=== PATIENT | male | born 1985 | race Caucasian/White ===

== ENCOUNTER 2016-12-15 11:38 | Emergency (ER) | payer BC, OTHER ==
[~2016-12-15] VITALS: Ht 175.3 cm; Wt 94.7 kg
[2016-12-15 11:47] VITALS: TEMP 36.7; Ht 175.3 cm; Wt 94.7 kg
[2016-12-15] MEDS ORDERED: ONDANSETRON INJ 2 MG/ML 2 ML VIAL IV STA (11:56)
[2016-12-15] MEDS ORDERED: MoRPHine SULFATE 10 MG/ML CARP/VIAL IV STA (11:56)
[2016-12-15] MEDS ORDERED: SODIUM CHLORIDE 0.9% 1000ML 1,000 ML IV STA (11:56)
[2016-12-15] MEDS ORDERED: MoRPHine SULFATE 4 MG/ML 1 ML CARP\\VIAL ONE (12:01)
[2016-12-15] MEDS ORDERED: ONDANSETRON INJ 2 MG/ML 2 ML VIAL ONE (12:01)
[2016-12-15 12:25] LABS: BASO % 0.6 %; BASO ABS # 0.06 K/uL (0-0.2); COMPLETE YES; EOS % 3.2 %; HEMATOCRIT 48.8 % (42-52); IG% 0.7 %; LYMPH % 31.3 %; LYMPH ABS # 3.15 K/uL (1.2-3.4); MEAN CELL VOLUME 86.7 fL (80-100); MEAN CORPUSCULAR HEMOGLOBIN 28.8 pg (25-34); MEAN CORPUSCULAR HGB CONC 33.2 g/dl (32-36); MEAN PLATELET VOLUME 9.9 fL (7.4-10.4); MONO % 5.3 %; NEUT % 58.9 %; PLATELET COUNT 287 K/uL (130-400); RED BLOOD COUNT 5.63 M/uL (4.7-6.1); WHITE BLOOD COUNT 10.08 K/uL (4.8-10.8)
[2016-12-15 12:36] LABS: CALCIUM 9.5 mg/dl (8.5-10.1)
[2016-12-15 12:37] LABS: BUN/CREATININE RATIO 19.1 (10-20); CREATININE 1.1 mg/dl (0.60-1.40); POTASSIUM 3.8 mmol/L (3.5-5.1)
[2016-12-15] MEDS ORDERED: HYDROmorphone INJ 0.5 MG/0.5 ML SYR IV STA ×2 (12:39→13:23)
[2016-12-15 12:40] LABS: ALB/GLOB RATIO 1.1 (0.9-2)
[2016-12-15 12:44] LABS: URINE APPEARANCE CLEAR (CLEAR); URINE BILIRUBIN NEG (NEG); URINE COLOR YELLOW; URINE NITRITE NEG (NEG); URINE SPECIFIC GRAVITY 1.031 (1.000-1.030); UROBILINOGEN NEG (NEG); ZZUR CULT IF INDIC CLEAN CATCH NO
--- NOTE | 2016-12-15 12:52 | DIAGNOSTIC IMAGING REPORT ---
ABDOMEN AND PELVIS CT WITHOUT CONTRAST CT DOSE: 451.32 mGy.cm HISTORY: Pain left flank pain TECHNIQUE: Multiaxial CT images of the abdomen and pelvis were performed without the use of intravenous and oral contrast according to the standard department stone protocol. COMPARISON STUDY: None. FINDINGS: Lung bases are clear. Liver spleen and pancreas are considered unremarkable. Gallbladder is negative for distention. There is a 1 mm nonobstructing lower pole right renal calcification. There is an additional mid pole 1 mm calcification. There is moderate fullness of left renal collecting system as well as left ureter. Distal left ureter is somewhat less distended. There is a 1.5 mm partially obstructing calculus left ureterovesical junction. Bladder is midline. Bowel pattern overall is nonobstructive. IMPRESSION: 1. 1.5 mm partially obstructing calculus left ureterovesical junction. 2. Mild left hydroureteronephrosis. 3. Several nonobstructing punctate right renal calcifications. Electronically signed by: Jose Beavers M.D. 12/15/2016 12:50 PM Dictated Date/Time: 12/15/2016 12:45 PM
[2016-12-15 12:59] LABS: MANUAL MICROSCOPIC REQUIRED? NO; REVIEW REQ? NO
[2016-12-15] MEDS ORDERED: KETOROLAC TROMETHAMINE 30 MG/ML VIAL IV STA (13:17)
[2016-12-15] MEDS ORDERED: TAMSULOSIN HCL 0.4 MG CAP PO ONE (13:30)
[2016-12-15] MEDS ORDERED: OXYC-57 PO (14:14)
[2016-12-15] MEDS ORDERED: ONDA4TAB10 SL (14:15)
[2016-12-15] MEDS ORDERED: TAMS0.4C38 PO (14:15)
--- NOTE | 2016-12-15 14:16 | EMERGENCY ROOM VISIT NOTE ---
History First contact with patient: 11:51 Chief Complaint: FLANK PAIN Stated Complaint: BACK PAIN-LEFT SIDE History of Present Illness The patient is a 31 year old male who presents to the Emergency Room with complaints of a sudden onset of left-sided flank pain. The patient states that he has had "an upset stomach" all day today. He reports that approximately 30 minutes prior to arrival, he had an acute onset of left flank pain. He reports that the pain radiates into the left side of his abdomen. He rates the discomfort a 10/10. He reports nausea but no vomiting. He denies any urinary symptoms. He denies any history of similar symptoms. He denies any history of kidney stones. Review of Systems A complete 10 point review of systems was reviewed with the patient with pertinent positives and negatives as per history of present illness. All else were negative. Social History Smoking Status: Never Smoker Current/Historical Medications Scheduled Ondasetron Odt (Zofran Odt), 4 MG SL Q6H Tamsulosin Hcl (Flomax), 0.4 MG PO DAILY Scheduled PRN Oxycodone/Acetaminophen 5MG/325MG (Percocet 5MG/325MG), 1-2 TABS PO Q6H PRN for Pain Allergies Coded Allergies: Bacitracin (Verified Allergy, Mild, rash, 12/15/16) Neomycin (Verified Allergy, Mild, rash, 12/15/16) Polymyxin B (Verified Allergy, Mild, rash, 12/15/16) Physical Exam Vital Signs Date Time Temp Pulse Resp B/P Pulse Ox O2 Delivery O2 Flow Rate FiO2 12/15/16 14:19 74 16 117/82 99 12/15/16 13:32 63 16 116/87 96 Room Air 12/15/16 12:00 106 30 132/102 12/15/16 11:47 36.7 86 18 85/62 97 Room Air Physical Exam VITALS: Vitals are noted on the nurse's note and reviewed by myself. Vital signs stable. GENERAL: This is a 31-year-old male, in no acute distress, nondiaphoretic, well- developed well-nourished. SKIN: Capillary reflex less than 2 seconds. HEART: Regular rate and rhythm without murmurs gallops or rubs. LUNGS: Clear to auscultation bilaterally without wheezes, rales or rhonchi. ABDOMEN: Positive bowel sounds x 4. Soft, nondistended, mild left lower quadrant tenderness. There is left CVA tenderness. NEURO: Patient was alert and oriented to person place and time. Medical Decision & Procedures Laboratory Results 12/15/16 12:00 Red Blood Count 5.63, Mean Corpuscular Volume 86.7, Mean Corpuscular Hemoglobin 28.8, Mean Corpuscular Hemoglobin Concent 33.2, Mean Platelet Volume 9.9, Neutrophils (%) (Auto) 58.9, Lymphocytes (%) (Auto) 31.3, Monocytes (%) (Auto) 5.3, Eosinophils (%) (Auto) 3.2, Basophils (%) (Auto) 0.6, Neutrophils # (Auto) 5.95, Lymphocytes # (Auto) 3.15, Monocytes # (Auto) 0.53, Eosinophils # (Auto) 0.32, Basophils # (Auto) 0.06 12/15/16 12:00 Test 12/15/16 12:00 White Blood Count 10.08 K/uL (4.8-10.8) Red Blood Count 5.63 M/uL (4.7-6.1) Hemoglobin 16.2 g/dL (14.0-18.0) Hematocrit 48.8 % (42-52) Mean Corpuscular Volume 86.7 fL (80-100) Mean Corpuscular Hemoglobin 28.8 pg (25-34) Mean Corpuscular Hemoglobin Concent 33.2 g/dl (32-36) Platelet Count 287 K/uL (130-400) Mean Platelet Volume 9.9 fL (7.4-10.4) Neutrophils (%) (Auto) 58.9 % Lymphocytes (%) (Auto) 31.3 % Monocytes (%) (Auto) 5.3 % Eosinophils (%) (Auto) 3.2 % Basophils (%) (Auto) 0.6 % Neutrophils # (Auto) 5.95 K/uL (1.4-6.5) Lymphocytes # (Auto) 3.15 K/uL (1.2-3.4) Monocytes # (Auto) 0.53 K/uL (0.11-0.59) Eosinophils # (Auto) 0.32 K/uL (0-0.5) Basophils # (Auto) 0.06 K/uL (0-0.2) RDW Standard Deviation 40.2 fL (36.4-46.3) RDW Coefficient of Variation 12.6 % (11.5-14.5) Immature Granulocyte % (Auto) 0.7 % Immature Granulocyte # (Auto) 0.07 K/uL (0.00-0.02) Urine Color YELLOW Urine Appearance CLEAR (CLEAR) Urine pH 5.0 (4.5-7.5) Urine Specific [place] 1.031 (1.000-1.030) Urine Protein NEG (NEG) Urine Glucose (UA) NEG (NEG) Urine Ketones NEG (NEG) Urine Occult Blood 2+ (NEG) Urine Nitrite NEG (NEG) Urine Bilirubin NEG (NEG) Urine Urobilinogen NEG (NEG) Urine Leukocyte Esterase NEG (NEG) Urine WBC (Auto) 1-5 /hpf (0-5) Urine RBC (Auto) >30 /hpf (0-4) Urine Hyaline Casts (Auto) 1-5 /lpf (0-5) Urine Epithelial Cells (Auto) 5-10 /lpf (0-5) Urine Bacteria (Auto) NEG (NEG) Anion Gap 10.0 mmol/L (3-11) Est Creatinine Clear Calc Drug Dose 109.5 ml/min Estimated GFR () 102.4 Estimated GFR (Non- 88.4 BUN/Creatinine Ratio 19.1 (10-20) Calcium Level 9.5 mg/dl (8.5-10.1) Total Bilirubin 0.4 mg/dl (0.2-1) Aspartate Amino Transf (AST/SGOT) 18 U/L (15-37) Alanine Aminotransferase (ALT/SGPT) 39 U/L (12-78) Alkaline Phosphatase 86 U/L (45-117) Total Protein 8.2 gm/dl (6.4-8.2) Albumin 4.3 gm/dl (3.4-5.0) Globulin 3.9 gm/dl (2.5-4.0) Albumin/Globulin Ratio 1.1 (0.9-2) Lipase 105 U/L (73-393) Medications Administered Medications (Trade) Dose Ordered Sig/Vinnie Route Start Time Stop Time Status Last Admin Dose Admin Sodium Chloride (Nss 1000ml) 1,000 ml @ 999 mls/hr Q1H1M STAT IV 12/15/16 11:56 12/15/16 12:56 DC 5/24/17 12:05 999 MLS/HR Ondansetron HCl (Zofran Inj) 4 mg STK-MED ONCE .ROUTE 12/15/16 12:01 12/15/16 12:02 DC 12/15/16 12:04 4 MG Morphine Sulfate (MoRPHine SULFATE INJ) 8 mg STK-MED ONCE .ROUTE 12/15/16 12:01 12/15/16 12:02 DC 12/15/16 12:05 8 MG Hydromorphone HCl (Dilaudid Inj) 0.5 mg NOW STAT IV 12/15/16 12:39 12/15/16 12:40 DC 12/15/16 12:49 0.5 MG Ketorolac Tromethamine (Toradol Inj) 30 mg NOW STAT IV 12/15/16 13:17 12/15/16 13:18 DC 12/15/16 13:32 30 MG Tamsulosin HCl (Flomax Cap) 0.4 mg NOW ONCE PO 12/15/16 13:30 12/15/16 13:31 DC 12/15/16 13:31 0.4 MG Hydromorphone HCl (Dilaudid Inj) 0.5 mg NOW STAT IV 12/15/16 13:23 12/15/16 13:25 DC 12/15/16 13:32 0.5 MG ED Course The patient was evaluated as above. Labs were drawn and IV access was obtained. Patient was medicated with 1 L normal saline solution, 8 mg morphine IV and 4 mg Zofran IV. Patient was reevaluated and had continued pain. He was given 0.[address] scan of the abdomen and pelvis was performed and read by radiology as above. Patient was reevaluated and had continued pain. He was given 30 mg Toradol IV, 0.5 mg Dilaudid IV and a dose of Flomax. Patient was reassessed and felt much better. Discharge instructions were reviewed with the patient. The patient verbalized understanding of my assessment and treatment plan and was discharged home in good condition. Medical Decision Differential diagnosis includes renal calculus, pyelonephritis, bowel obstruction, lumbar pain, among others. The patient is a 31-year-old male who presents today complaining of left flank pain. Labs revealed no leukocytosis or anemia. Urine shows the presence of blood. CT scan was obtained and did show a left ureteral stone. The patient was treated with multiple doses of pain medication and did feel much better. He was offered admission for pain control but preferred to be discharged home. He will be placed on Flomax and was given prescriptions for Percocet and Zofran. Based on the patient's presentation and work up, I feel the patient is stable for outpatient treatment. The patient was educated to return to the emergency department for any worsening of their current condition or new/concerning symptoms. He will follow up with his PCP. [place] [facility] Monitoring [facility] Search Results: patient reviewed within database, no issues identified Impression Primary Impression: Left ureteral calculus Departure Information Dispostion Home / Self-Care Condition GOOD Prescriptions Ondasetron Odt (ZOFRAN ODT) 4 Mg Tab 4 MG SL Q6H for Nausea, #15 TAB Prov: Vicky Sanches PA-C 12/15/16 Tamsulosin Hcl (FLOMAX) 0.4 Mg Cap 0.4 MG PO DAILY for 7 Days, #7 CAP Prov: Vicky Sanches PA-C 12/15/16 Oxycodone/Acetaminophen 5MG/325MG (PERCOCET 5MG/325MG) Tab 1-2 TABS PO Q6H Y for Pain, #20 TAB For Initial Treatment Prov: Vicky Sanches PA-C 12/15/16 Referrals No Doctor, Assigned (PCP) Bassam Chris MD Patient Instructions My [facility] Additional Instructions You have been treated in the Emergency Department today for a Kidney Stone ( Nephrolithiasis). You have received pain medicine in the emergency department which impairs your ability to operate a vehicle. It is illegal for you to drive after receiving these medicines. You have been prescribed Percocet to be used for pain control. This is a narcotic medication. You cannot drive or consume alcohol while on this medicine. This medicine should only be used for pain that cannot be controlled with [id number] pain medicines. You have been prescribed Zofran to be used for any nausea or vomiting. Take as prescribed. You have been prescribed Flomax 0.4 mg to be taken ONCE daily. This medicine has been prescribed as it can help relax the smooth muscles of the urinary tract increasing transit time of the kidney stone. For pain control, you can use the following [id number] medicines (if >12 yo): - Regular strength (325mg/tab) Tylenol (acetaminophen) 2 tabs every 4-6 hours as needed. Do not exceed 12 tablets in a 24 hour period. Avoid taking more than 4 grams (4000 mg) of Tylenol per day. This includes any other sources of acetaminophen you may take on a regular basis. - Regular strength (200 mg/tab) Advil (ibuprofen) 1-2 tabs every 4-6 hours as needed. Do not exceed a dose of 3200 mg per day. You have been provided a strainer and specimen collection cup. You should strain your urine to collect any passed stones. Your stones can be placed into the specimen cup and taken to your Urologist for further evaluation. You have been provided the contact information for the on-call Urologist. You should contact the Urologist's office tomorrow to establish a follow-up appointment from today's Emergency Department visit. Return to the Emergency Department if your symptoms persist despite the treatment plan outlined above or if you develop the following symptoms: intractable pain, fever, chills, or large amounts of blood in your urine.
[2016-12-15 14:19] VITALS: BP 117/82; PULSE 74; O2SAT 99
== END 2016-12-15 14:26 | disposition home or self-care (01) ==
LOC: C.EDB 11:42 → C.EDC 14:26
DX: N20.1 Calculus of ureter (principal)

== ENCOUNTER 2017-08-05 09:56 | Emergency (ER) | payer BC ==
[~2017-08-05] VITALS: Ht 177.8 cm; Wt 88.0 kg
[2017-08-05 10:07] VITALS: TEMP 36.8; Ht 177.8 cm; Wt 88.0 kg
[2017-08-05] MEDS ORDERED: ONDANSETRON INJ 2 MG/ML 2 ML VIAL IV STA (10:47)
[2017-08-05] MEDS ORDERED: KETOROLAC TROMETHAMINE 30 MG/ML VIAL IV STA (10:47)
[2017-08-05] MEDS ORDERED: HYDROmorphone INJ 1 MG/ML SYR IV STA ×3 (10:47→14:21)
--- NOTE | 2017-08-05 11:01 | EMERGENCY ROOM VISIT NOTE ---
History Report prepared by Dilip: Rl Stroud Under the Supervision of: Dr. Magnus Shah M.D. First contact with patient: 10:39 Chief Complaint: KIDNEY STONE Stated Complaint: KIDNEY STONE History of Present Illness The patient is a 32 year old male who presents to the Emergency Room with complaints of lower flank pain that he has been experiencing intermittently for the past couple of days. He notes that his pain worsened significantly today, as well as began to radiate into his groin. He has a history of kidney stones and notes that this feels exactly like the episodes he has had in the past. Source of History: patient Onset: Past couple of days Position: back (lower) Timing: worsening (two days) Note: Groin Pain Review of Systems See HPI for pertinent positives & negatives. A total of 10 systems reviewed and were otherwise negative. Past Medical & Surgical Medical Problems: (1) Hx of renal calculi Family History Cancer Hypertension Social History Smoking Status: Never Smoker Marital Status: Housing Status: lives with significant other Occupation Status: employed Current/Historical Medications Scheduled Amoxicillin (Amoxil), 500 MG PO TID Tamsulosin Hcl (Flomax), 0.4 MG PO DAILY Scheduled PRN Oxycodone/Acetaminophen 5MG/325MG (Percocet 5MG/325MG), 1-2 TAB PO Q4H PRN for Pain Allergies Coded Allergies: Bacitracin (Verified Allergy, Mild, rash, 08/05/17) Neomycin (Verified Allergy, Mild, rash, 08/05/17) Polymyxin B (Verified Allergy, Mild, rash, 08/05/17) Physical Exam Vital Signs Date Time Temp Pulse Resp B/P (MAP) Pulse Ox O2 Delivery O2 Flow Rate FiO2 08/05/17 14:34 95 127/76 97 08/05/17 14:04 95 127/76 97 Room Air 08/05/17 12:02 66 08/05/17 11:43 71 131/86 96 Room Air 08/05/17 10:07 36.8 93 20 135/90 96 Physical Exam GENERAL: Patient appears uncomfortable on exam. HEAD: Normocephalic atraumatic EYES: Ocular movements intact pupils equal and react to light OROPHARYNX mucous membranes are moist no exudates present no erythema or edema present NECK: Supple no nuchal rigidity CHEST: Good equal expansion LUNGS: Clear and equal to auscultation CARDIAC: Normal S1 and S2 ABDOMEN: Soft nontender no guarding BACK: No CVA tenderness EXTREMITIES: No pain upon palpation normal muscle strength in all groups no clubbing cyanosis or edema NEURO: Patient is following commands and answering questions appropriately. Alert and oriented x3 Cranial Nerves 2-12 grossly intact Medical Decision & Procedures ER Provider Diagnostic Interpretation: Radiology results as stated below per my review and radiologist interpretation: KUB CLINICAL HISTORY: Right-sided abdominal pain. COMPARISON STUDY: CT of the abdomen and pelvis December 15, 2016 and renal ultrasound performed earlier today. FINDINGS: A 2 mm right pelvic calcification was not evident on CT of December 15, 2016. This could reflect a small distal right ureteral calculus. Left pelvic calcifications reflect phleboliths. Bowel gas pattern is normal. IMPRESSION: Possible punctate 2 mm distal right ureteral calculus. Electronically signed by: Gaudencio Johns M.D. 08/05/2017 1:11 PM Dictated Date/Time: 08/05/2017 1:09 PM EXAMINATION: RENAL ULTRASOUND CLINICAL HISTORY: Right-sided flank pain COMPARISON STUDY: CT scan dated 12/15/2016 FINDINGS: The right kidney measures 11.2 cm. The left kidney measures 11 cm. There is mild right-sided hydronephrosis no solid renal masses are visualized. There is borderline increase in right renal cortical echogenicity No bladder abnormalities are visualized. Bilateral ureteral jets were visualized. If there is clinical concern over the presence of an obstructing right ureteral calculus, a noncontrast CT scan could be obtained in follow-up. IMPRESSION : Interval development of mild unexplained right-sided hydronephrosis Electronically signed by: Duke Hicks M.D. 08/05/2017 12:44 PM Dictated Date/Time: 08/05/2017 12:43 PM Laboratory Results 08/05/17 11:57 Red Blood Count 5.43, Mean Corpuscular Volume 86.6, Mean Corpuscular Hemoglobin 30.2, Mean Corpuscular Hemoglobin Concent 34.9, Mean Platelet Volume 9.5, Neutrophils (%) (Auto) 82.6, Lymphocytes (%) (Auto) 10.5, Monocytes (%) (Auto) 5.5, Eosinophils (%) (Auto) 0.5, Basophils (%) (Auto) 0.2, Neutrophils # (Auto) 9.92, Lymphocytes # (Auto) 1.26, Monocytes # (Auto) 0.66, Eosinophils # (Auto) 0.06, Basophils # (Auto) 0.03 08/05/17 11:20 Test 08/05/17 11:20 08/05/17 11:57 08/05/17 13:30 Anion Gap 9.0 mmol/L (3-11) Est Creatinine Clear Calc Drug Dose 104.8 ml/min Estimated GFR () 99.5 Estimated GFR (Non- 85.8 BUN/Creatinine Ratio 13.7 (10-20) Calcium Level 9.8 mg/dl (8.5-10.1) Total Bilirubin 0.8 mg/dl (0.2-1) Direct Bilirubin mg/dl (0-0.2) Aspartate Amino Transf (AST/SGOT) 24 U/L (15-37) Alanine Aminotransferase (ALT/SGPT) 47 U/L (12-78) Alkaline Phosphatase 91 U/L (45-117) Total Protein 8.4 gm/dl (6.4-8.2) Albumin 4.5 gm/dl (3.4-5.0) Lipase 74 U/L (73-393) Chemistry Specimen Hemolysis White Blood Count 12.01 K/uL (4.8-10.8) Red Blood Count 5.43 M/uL (4.7-6.1) Hemoglobin 16.4 g/dL (14.0-18.0) Hematocrit 47.0 % (42-52) Mean Corpuscular Volume 86.6 fL (80-100) Mean Corpuscular Hemoglobin 30.2 pg (25-34) Mean Corpuscular Hemoglobin Concent 34.9 g/dl (32-36) Platelet Count 250 K/uL (130-400) Mean Platelet Volume 9.5 fL (7.4-10.4) Neutrophils (%) (Auto) 82.6 % Lymphocytes (%) (Auto) 10.5 % Monocytes (%) (Auto) 5.5 % Eosinophils (%) (Auto) 0.5 % Basophils (%) (Auto) 0.2 % Neutrophils # (Auto) 9.92 K/uL (1.4-6.5) Lymphocytes # (Auto) 1.26 K/uL (1.2-3.4) Monocytes # (Auto) 0.66 K/uL (0.11-0.59) Eosinophils # (Auto) 0.06 K/uL (0-0.5) Basophils # (Auto) 0.03 K/uL (0-0.2) RDW Standard Deviation 40.4 fL (36.4-46.3) RDW Coefficient of Variation 12.8 % (11.5-14.5) Immature Granulocyte % (Auto) 0.7 % Immature Granulocyte # (Auto) 0.08 K/uL (0.00-0.02) Urine Color DK YELLOW Urine Appearance CLOUDY (CLEAR) Urine pH 5.0 (4.5-7.5) Urine Specific [place] 1.029 (1.000-1.030) Urine Protein NEG (NEG) Urine Glucose (UA) NEG (NEG) Urine Ketones 1+ (NEG) Urine Occult Blood 3+ (NEG) Urine Nitrite NEG (NEG) Urine Bilirubin NEG (NEG) Urine Urobilinogen NEG (NEG) Urine Leukocyte Esterase NEG (NEG) Urine WBC (Auto) 1-5 /hpf (0-5) Urine RBC (Auto) >30 /hpf (0-4) Urine Hyaline Casts (Auto) 1-5 /lpf (0-5) Urine Epithelial Cells (Auto) 0-5 /lpf (0-5) Urine Bacteria (Auto) NEG (NEG) Labs reviewed by ED physician. Medications Administered Medications (Trade) Dose Ordered Sig/Vinnie Route Start Time Stop Time Status Last Admin Dose Admin Ketorolac Tromethamine (Toradol Inj) 30 mg NOW STAT IV 08/05/17 10:47 08/05/17 10:50 DC 08/05/17 11:33 30 MG Hydromorphone HCl (Dilaudid Inj) 1 mg NOW STAT IV 08/05/17 10:47 08/05/17 10:50 DC 08/05/17 11:33 1 MG Ondansetron HCl (Zofran Inj) 4 mg NOW STAT IV 08/05/17 10:47 08/05/17 10:50 DC 08/05/17 11:32 4 MG Hydromorphone HCl (Dilaudid Inj) 1 mg NOW STAT IV 08/05/17 12:56 08/05/17 12:57 DC 08/05/17 13:00 1 MG Tamsulosin HCl (Flomax Cap) 0.4 mg NOW STAT PO 08/05/17 13:19 1/12/18 13:20 DC 08/05/17 13:30 0.4 MG Hydromorphone HCl (Dilaudid Inj) 1 mg NOW STAT IV 08/05/17 14:21 08/05/17 14:22 DC 08/05/17 14:29 1 MG ED Course 1044: Past medical records reviewed. The patient was evaluated in room C10. A complete history and physical examination was performed. 1047: Ordered Zofran 4 mg IV, Dilaudid 1 mg IV, Toradol 30 mg IV. 1256: Ordered Dilaudid 1 mg IV. 1319: Ordered Flomax 0.4 mg PO. Medical Decision Differential diagnosis: Etiologies such as renal colic, appendicitis, diverticulitis, mesenteric ischemia, aortic pathology, infections, inflammatory bowel disease, PUD, biliary pathology, UTI, as well as others were entertained This is a 32-year-old male who presents emergency department complaining of right flank pain. Patient has history of kidney stones in the past. He recently had a CAT scan of the abdomen and pelvis therefore he was sent for KUB as well as renal ultrasound. [facility] the Patient Appears to Have a Very Small Stone. He Was Given Toradol plus Dilaudid 3 in the emergency department. I do feel he is well enough to be discharged home. Patient was placed on Flomax. Patient was in agreement with the treatment plan. Blood Pressure Screening Patient's blood pressure: Normal blood pressure Impression Primary Impression: Kidney stone Scribe Attestation The scribe's documentation has been prepared under my direction and personally reviewed by me in its entirety. I confirm that the note above accurately reflects all work, treatment, procedures, and medical decision making performed by me. Departure Information Dispostion Home / Self-Care Prescriptions Tamsulosin Hcl (FLOMAX) 0.4 Mg Cap 0.4 MG PO DAILY for 10 Days, #10 CAP Prov: Magnus Shah MD 08/05/17 Oxycodone/Acetaminophen 5MG/325MG (PERCOCET 5MG/325MG) Tab 1-2 TAB PO Q4H Y for Pain, #14 TAB Prov: Magnus Shah MD 08/05/17 Referrals No Doctor, Assigned (PCP) Forms HOME CARE DOCUMENTATION FORM, IMPORTANT VISIT INFORMATION Patient Instructions My [facility] Additional Instructions FOllow up with DR Pardo's office You received narcotic or benzodiazepene medication while in the emergency room today. This is an addictive medication that may cause drowziness as well as constipation. Do not drive, operate heavy machinery, or drink alcohol under the influence of this medication. Take 600 mg Ibuprofen every 6 hours Take Percocet for breakthrough pain You have been examined and treated today on an emergency basis only. This is not a substitute for, or an effort to provide, complete comprehensive medical care. It is impossible to recognize and treat all injuries or illnesses in a single emergency department visit. It is therefore important that you follow up closely with your PCP. Call as soon as possible for an appointment. Thank you for your time and consideration. I look forward to speaking with you again soon. Please don't hesitate to call us if you have any questions.
[2017-08-05 12:09] LABS: ALBUMIN 4.5 gm/dl (3.4-5.0); CALCIUM 9.8 mg/dl (8.5-10.1); CREATININE 1.12 mg/dl (0.60-1.40); POTASSIUM 4.3 mmol/L (3.5-5.1); TOTAL PROTEIN 8.4 gm/dl (6.4-8.2)
[2017-08-05 12:11] LABS: BASO % 0.2 %; BASO ABS # 0.03 K/uL (0-0.2); EOS % 0.5 %; EOS ABS # 0.06 K/uL (0-0.5); HEMOGLOBIN 16.4 g/dL (14.0-18.0); IG# 0.08 K/uL (0.00-0.02); LYMPH % 10.5 %; LYMPH ABS # 1.26 K/uL (1.2-3.4); MEAN CELL VOLUME 86.6 fL (80-100); MEAN CORPUSCULAR HEMOGLOBIN 30.2 pg (25-34); MEAN CORPUSCULAR HGB CONC 34.9 g/dl (32-36); MEAN PLATELET VOLUME 9.5 fL (7.4-10.4); MONO % 5.5 %; MONO ABS # 0.66 K/uL (0.11-0.59); NEUT % 82.6 %; NEUT ABS # 9.92 K/uL (1.4-6.5); PLATELET COUNT 250 K/uL (130-400); RED CELL DISTRIBUTION WIDTH CV 12.8 % (11.5-14.5); RED CELL DISTRIBUTION WIDTH SD 40.4 fL (36.4-46.3); WHITE BLOOD COUNT 12.01 K/uL (4.8-10.8)
--- NOTE | 2017-08-05 12:46 | DIAGNOSTIC IMAGING REPORT ---
EXAMINATION: RENAL ULTRASOUND CLINICAL HISTORY: Right-sided flank pain COMPARISON STUDY: CT scan dated 12/15/2016 FINDINGS: The right kidney measures 11.2 cm. The left kidney measures 11 cm. There is mild right-sided hydronephrosis no solid renal masses are visualized. There is borderline increase in right renal cortical echogenicity No bladder abnormalities are visualized. Bilateral ureteral jets were visualized. If there is clinical concern over the presence of an obstructing right ureteral calculus, a noncontrast CT scan could be obtained in follow-up. IMPRESSION : Interval development of mild unexplained right-sided hydronephrosis Electronically signed by: Duke Hicks M.D. 08/05/2017 12:44 PM Dictated Date/Time: 08/05/2017 12:43 PM
[2017-08-05] MEDS ORDERED: AMOX500C3 PO (13:02)
--- NOTE | 2017-08-05 13:13 | DIAGNOSTIC IMAGING REPORT ---
KUB CLINICAL HISTORY: Right-sided abdominal pain. COMPARISON STUDY: CT of the abdomen and pelvis December 15, 2016 and renal ultrasound performed earlier today. FINDINGS: A 2 mm right pelvic calcification was not evident on CT of December 15, 2016. This could reflect a small distal right ureteral calculus. Left pelvic calcifications reflect phleboliths. Bowel gas pattern is normal. IMPRESSION: Possible punctate 2 mm distal right ureteral calculus. Electronically signed by: Gaudencio Johns M.D. 08/05/2017 1:11 PM Dictated Date/Time: 08/05/2017 1:09 PM
[2017-08-05] MEDS ORDERED: TAMSULOSIN HCL 0.4 MG CAP PO STA (13:19)
[2017-08-05] MEDS ORDERED: TAMS0.4C38 PO (14:02)
[2017-08-05] MEDS ORDERED: OXYC-57 PO (14:02)
[2017-08-05 14:34] VITALS: BP 127/76; PULSE 95; O2SAT 97
== END 2017-08-05 14:35 | disposition home or self-care (01) ==
LOC: C.EDB 09:58 → C.EDC 14:35
DX: N20.0 Calculus of kidney (principal)

== ENCOUNTER → 2017-08-17 | Outpatient (CLI) | payer BC ==
[~2017-08-17] MED LIST: AMOX500C3 PO; OXYC-57 PO
== END | disposition home or self-care (01) ==
LOC: C.LABSPEC 17:19
PROVIDERS: ATTEND Urology
DX: N20.0 Calculus of kidney (principal)